=== PATIENT | female | born 1960 | race Caucasian/White ===

== ENCOUNTER 2017-04-13 08:52 | Day surgery (SDC) | payer OTHER ==
[~2017-04-13] VITALS: Ht 160 cm; Wt 78.0 kg
[2017-04-13] MEDS ORDERED: NEOSTIGMINE METHYLSULFATE 1 MG/ML, 10 ML VIAL IVP ONE (11:45)
[2017-04-13] MEDS ORDERED: ROCURONIUM BROMIDE 10 MG/ML (ZEMURON) IV ONE (11:45)
[2017-04-13] MEDS ORDERED: ALFENTANIL HCL 1000 MCG/2 ML AMP IVP ONE (11:45)
[2017-04-13] MEDS ORDERED: fentaNYL CITRATE/PF 100 MCG/2 ML AMP IVP ONE (11:45)
[2017-04-13] MEDS ORDERED: MIDAZOLAM HCL 5 MG/5 ML VIAL IVP ONE (11:45)
[2017-04-13] MEDS ORDERED: KETOROLAC TROMETHAMINE 30 MG VIAL IVP ONE (11:45)
[2017-04-13] MEDS ORDERED: ATROPINE SULFATE 0.4 MG/ML VIAL IVP ONE (11:45)
[2017-04-13] MEDS ORDERED: ONDANSETRON HCL 4 MG/2 ML VIAL IVP ONE (11:45)
[2017-04-13] MEDS ORDERED: SEVOFLURANE 15 MIN GAS INH ONE (11:45)
[2017-04-13] MEDS ORDERED: CEFAZOLIN 2 GM IVPB PREMIX 50 ML IV ONE (11:45)
[2017-04-13] MEDS ORDERED: PROPOFOL 200MG/ 20ML VIAL (DIPRIVAN) IV ONE (11:45)
[2017-04-13] MEDS ORDERED: POLYMYXIN 500,000/BACIT.10,000 UNITS in NS IRR 1 L IR ONE (12:28)
[2017-04-13] MEDS ORDERED: LR 1,000 ML IV SCH (12:40)
[2017-04-13] MEDS ORDERED: METOCLOPRAMIDE HCL 10 MG/2 ML VIAL IVP PRN (12:45)
[2017-04-13] MEDS ORDERED: MORPHINE 2 MG/ML INJ. SYRINGE IVP PRN ×2 (12:45)
[2017-04-13] MEDS: MORPHINE 2 MG/ML INJ. SYRINGE IVP PRN ×2 (14:00→14:30)
[2017-04-13] MEDS ORDERED: MORPHINE 4 MG/ML INJ. SYRINGE ONE ×2 (14:05→14:34)
[2017-04-13 15:25] VITALS: BP_SYST 126
== END 2017-04-13 15:55 | disposition home or self-care (01) ==
LOC: SDS 08:52 → SMU 08:53 → SDS 15:55
PROVIDERS: ATTEND Orthopaedic Surgery
DX: S82.391A Other fracture of lower end of right tibia, initial encounter for closed fracture (principal); S82.831A Other fracture of upper and lower end of right fibula, initial encounter for closed fracture; W19.XXXA Unspecified fall, initial encounter; Y93.9 Activity, unspecified; Y92.89 Other specified places as the place of occurrence of the external cause; Y99.9 Unspecified external cause status; E11.9 Type 2 diabetes mellitus without complications; Z79.1 Long term (current) use of non-steroidal anti-inflammatories (NSAID); Z98.890 Other specified postprocedural states; E66.9 Obesity, unspecified
CPT/HCPCS: 27758; 76000; 82962; C1713; C1763; J0461; J0690; J1885; J2250; J2270; J2405; J2704; J2710; J3010; J3490; J7120